=== PATIENT | male | born 1935 | race Caucasian/White ===

== ENCOUNTER → 2020-05-29 | Outpatient (CLI) | payer MEDICARE | END | disposition home or self-care (01) | LOC: CPPFTMAIN 14:33 | PROVIDERS: ATTEND Internal Medicine Critical Care Medicine | DX: J84.10 Pulmonary fibrosis, unspecified (principal); R94.2 Abnormal results of pulmonary function studies | CPT/HCPCS: 94060; 94726; 94729 ==

== ENCOUNTER → 2021-01-01 | Outpatient (CLI) | payer MEDICARE ==
--- NOTE | 2021-01-01 18:17 | CT ---
EXAMINATION TYPE: CT angio chest DATE OF EXAM: 01/01/2021 COMPARISON: None HISTORY: SOB CT DLP: 699 mGycm Automated exposure control for dose reduction was used. CONTRAST: Performed with IV Contrast, patient injected with 65cc mL of Isovue 370. There are 3-D post processed images. There is some coarse interstitial density in the mid and lower lung [place]. Heart is top normal in [place]. There is no pericardial effusion. There is no pleural effusion. There are no hilar masses. There is no mediastinal adenopathy. Ascending aorta measures 4 cm. There is no dissection. There is no evidence of filling defect in the pulmonary arteries. Bony thorax is intact. There are st ernal wires. There is surgery at the aortic valve. IMPRESSION: No evidence of pulmonary embolism. Previous cardiac surgery. Mild cardiomegaly. 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 No suspicious pulmonary mass.
== END | disposition home or self-care (01) ==
LOC: RADCTMAIN 16:35
PROVIDERS: ATTEND Nurse Practitioner Adult Health
DX: I71.2 Thoracic aortic aneurysm, without rupture (principal); J84.10 Pulmonary fibrosis, unspecified; I51.7 Cardiomegaly
CPT/HCPCS: 82565; 84520; 71275; 36415; Q9967